=== PATIENT | female | born 1970 | race Caucasian/White ===

== ENCOUNTER 2021-08-05 14:53 | Emergency (ER) | payer OTHER, SELFPAY ==
--- NOTE | ~2021-08-05 | XR_ITS ---
XR elbow LT min 3V DATE: 08/05/2021 15:32 INDICATION: Left elbow injury, pain after fall this morning TECHNIQUE: 4 views COMPARISON: None FINDINGS: No fracture or dislocation or joint effusion. IMPRESSION: Negative Reviewed, dictated and finalized at location B. HOP IMPRESSION: Negative
[2021-08-05 15:24] VITALS: BP 119/68; PULSE 78; RESP 18; TEMP 36.6; O2SAT 98
--- NOTE | 2021-08-05 15:59 | ED.UPPEXIN ---
HPI - Extremity Injury (Upper) General Chief Complaint: Extremity Injury, Upper Stated Complaint: Lt elbow injury Time Seen by Provider: 08/05/21 15:52 Source: patient and RN notes reviewed Mode of arrival: ambulatory Limitations: no limitations History of Present Illness HPI narrative: Patient presents today complaining of a left elbow injury. This morning, she tripped and fell over a threshold at work, landing on her left elbow. Denies numbness or tingling in the arm or fingers. Currently rates her pain 5/10, which increases with movement. She has been taking ibuprofen, applying ice, and elevating the arm with some relief. MD complaint: injury to: left and elbow Related Data Home Medications Medication Instructions Recorded Confirmed No Home Medications 08/05/21 08/05/21 Allergies Allergy/AdvReac Type Severity Reaction Status Date / Time No Known Allergies Allergy Verified 08/05/21 15:42 Review of Systems Review of Systems: CONSTITUTIONAL: Denies body aches, fever, chills, or sweats. EYES: Denies visual changes, redness, or discharge. ENT: Denies rhinorrhea, congestion, sore throat, or otalgia. CARDIOVASCULAR: Denies chest pain, palpitations, or edema. RESPIRATORY: Denies cough or dyspnea. GASTROINTESTINAL: Denies abdominal pain, nausea, vomiting, or diarrhea. GENITOURINARY: Denies dysuria or hematuria. SKIN: Denies rash, itching, or wounds. MUSCULOSKELETAL: Denies back pain, or myalgia. + Left elbow injury NEUROLOGIC: Denies headache, numbness, tingling, or weakness. PSYCH: Denies depression or anxiety. PMFSH Comments At time of signature, I have reviewed and agree with nursing past medical, surgical, social and family history unless otherwise noted. Please see nursing chart for further information. There is no relevant family history pertinent to the presenting complaint Exam Narrative: GENERAL: Well-appearing, well-nourished, and in no acute distress. HEAD: Normocephalic, atraumatic. EYES: EOMI. No redness or drainage. Conjunctivae normal. ENT: Mucous membranes pink and moist. NECK: Normal AROM. CHEST: No respiratory distress. EXTREMITIES: Left elbow: Tenderness to the medial and lateral epicondyles. No tenderness to the olecranon process. No edema noted. No erythema or ecchymosis noted. Pain with internal rotation and flexion, especially past 90 degrees. Lesser pain with extension. Distal sensation intact. Capillary refill normal. Radial pulse normal. SKIN: Warm, dry, no rash. Capillary refill normal. Normal skin turgor. NEURO: No focal deficits. Alert and oriented x3. Gait steady. PSYCH: Normal affect. No signs of depression or anxiety. Course Course Level of Care: Express Care Visit Vital Signs Vital signs: Vital Signs Temperature 98 F 08/05/21 15:24 Pulse Rate 78 08/05/21 15:24 Respiratory Rate 18 08/05/21 15:24 Blood Pressure 119/68 08/05/21 15:24 Pulse Oximetry 98 08/05/21 15:24 Temperature 98 F 08/05/21 15:24 Pulse Rate 78 08/05/21 15:24 Respiratory Rate 18 08/05/21 15:24 Blood Pressure 119/68 08/05/21 15:24 Pulse Oximetry 98 08/05/21 15:24 Reviewed. Pt has been instructed to follow up with his PCP regarding his elevated blood pressure today. MDM - Extremity Injury (Upper) Differential Diagnosis Differential diagnosis: Likely fracture of humerus and other (Elbow fracture, contusion) Imaging Data Radiologist's impression: ITS Impressions Elbow X-Ray 08/05/21 15:45 IMPRESSION: Negative Critical Care Time Critical Care Time Critical Care Time: No Discharge Plan Discharge Clinical Impression: Contusion of elbow, left Qualifiers: Encounter type: initial encounter Qualified Code(s): S50.02XA - Contusion of left elbow, initial encounter Patient Disposition: Home, Self-Care Condition: Stable Instructions: Contusion in Adults (ED) Additional Instructions: Your x-ray is negative today for fracture.
== END 2021-08-05 16:13 | disposition home or self-care (01) ==
PROVIDERS: Emergency Provider Nurse Practitioner
DX: S50.02XA Contusion of left elbow, initial encounter (principal); W18.09XA Striking against other object with subsequent fall, initial encounter
CPT/HCPCS: 73080; 99203; G0463